=== PATIENT | male | born 2000 | race Caucasian/White ===

== ENCOUNTER → 2023-10-27 11:10 | Outpatient (BNVA) | payer OTHER, SELFPAY | PROVIDERS: Visit Provider Physician Assistant | DX: S29.012A Strain of muscle and tendon of back wall of thorax, initial encounter (principal); S39.012A Strain of muscle, fascia and tendon of lower back, initial encounter; W17.89XA Other fall from one level to another, initial encounter | CPT/HCPCS: 99203 ==

== ENCOUNTER → 2023-11-03 09:21 | Outpatient (BNVA) | payer OTHER, SELFPAY | PROVIDERS: Visit Provider Physician Assistant | DX: M54.2 Cervicalgia (principal); S39.012A Strain of muscle, fascia and tendon of lower back, initial encounter; W17.89XA Other fall from one level to another, initial encounter | CPT/HCPCS: 99213 ==

== ENCOUNTER → 2023-11-17 08:59 | Outpatient (BNVA) | payer OTHER, SELFPAY | PROVIDERS: Visit Provider Physician Assistant | DX: M54.2 Cervicalgia (principal); S39.012D Strain of muscle, fascia and tendon of lower back, subsequent encounter; X58.XXXD Exposure to other specified factors, subsequent encounter | CPT/HCPCS: 99213 ==

== ENCOUNTER → 2023-12-01 08:58 | Outpatient (BNVA) | payer OTHER, SELFPAY | PROVIDERS: Visit Provider Physician Assistant | DX: M54.2 Cervicalgia (principal); S39.012D Strain of muscle, fascia and tendon of lower back, subsequent encounter; W17.89XD Other fall from one level to another, subsequent encounter | CPT/HCPCS: 99213 ==

== ENCOUNTER → 2023-12-15 09:25 | Outpatient (BNVA) | payer OTHER, SELFPAY | PROVIDERS: Visit Provider Physician Assistant | DX: M54.2 Cervicalgia (principal); S39.012D Strain of muscle, fascia and tendon of lower back, subsequent encounter; W17.89XD Other fall from one level to another, subsequent encounter | CPT/HCPCS: 99213 ==

== ENCOUNTER → 2024-01-05 09:30 | Outpatient (BNVA) | payer OTHER, SELFPAY | PROVIDERS: Visit Provider Physician Assistant Medical | DX: S16.1XXD Strain of muscle, fascia and tendon at neck level, subsequent encounter (principal); S39.012D Strain of muscle, fascia and tendon of lower back, subsequent encounter; W17.89XD Other fall from one level to another, subsequent encounter | CPT/HCPCS: 99213 ==

== ENCOUNTER → 2024-01-26 09:29 | Outpatient (BNVA) | payer OTHER, SELFPAY | PROVIDERS: Visit Provider Physician Assistant | DX: S16.1XXD Strain of muscle, fascia and tendon at neck level, subsequent encounter (principal); S39.012D Strain of muscle, fascia and tendon of lower back, subsequent encounter; W17.89XD Other fall from one level to another, subsequent encounter | CPT/HCPCS: 99214 ==

== ENCOUNTER → 2024-02-16 09:54 | Outpatient (BNVA) | payer OTHER, SELFPAY | PROVIDERS: Visit Provider Physician Assistant | DX: S16.1XXD Strain of muscle, fascia and tendon at neck level, subsequent encounter (principal); S39.012D Strain of muscle, fascia and tendon of lower back, subsequent encounter; W17.89XD Other fall from one level to another, subsequent encounter | CPT/HCPCS: 99213 ==

== ENCOUNTER 2024-02-25 08:45 | Outpatient (AMB) | payer OTHER, SELFPAY ==
--- NOTE | 2024-02-25 08:47 | A.OFFVIS_ITS ---
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 This is Workers Comp case #[id number] managed by the [facility] Worker?s Compensation Department. Patient was referred to us by [facility]. He reports falling through barn floor into at least 6 feet down cellar on a [employer] cat into concrete floor. He states the back of machine went down and he fell on his back while in it and had Whiplash injury with increased pain in his neck and shoulders. Reports significant and persistent low back pain and between shoulder blades. He reports low back pain with intermittent radiation into his left buttock and into left leg posteriorly with numbness, tingling and occasional weakness and heaviness which he reports causes limping. Patient reports 2 weeks ago he had difficulty lifting his left leg due to weakness. He completed chiropractic, physical therapy at [facility] and home exercises with partial relief. Patient also tried dry needling and cupping with mixed results. Reports PT easily exacerbates his pain. Bending, twisting, prolonged sitting or standing, supine position reproduces his pérez Lumbar spine MRI on 01/14/24 showed disc bulge with small left paracentral protrusion at L5-S1 level with no definite nerve root impingement. He is currently out of work since work injury. Pain affects his daily activities and functioning, work, sleep and social interactions. Pain is worse at the evening and nighttime which he rates at 6- 7/10. Denies any abdominal or groin pain, bladder or bowel dysfunction or saddle anesthesia. Location: Mid back radiates to lower back with radiation into LLE posteriorly Duration: 4 months, work-related injury Characteristics of symptom or complaint: Stabbing, shooting, spasming, stabbing, aching, numbness , tight, tiring Aggravating or associated factors: Movement, laying flat, twisting, bending Relieving factors: Ibuprofen, cyclobenzaprine, Tylenol, Biofreeze, tiger balm Treatment: PT, chiropractic therapy, dry needling, cupping [facility] Social History (Updated 02/25/24 @ 08:59 by Cindy Stoner) Alcohol intake: current Alcohol intake frequency: holidays/special occasions only Patient Tobacco Use Status: Never used Tobacco Review of Systems Const All systems reviewed & are unremarkable except as noted in HPI and below Physical Exam Vital Signs: Last Vital Signs Pulse 93 02/25/24 08:58 BP 150/95 H 02/25/24 08:58 Pulse Ox 100 02/25/24 08:58 Oxygen Delivery Method Room Air 02/25/24 08:58 BMI result Body Mass Index 32.6 General: Appears afebrile. No acute distress. Alert and oriented. Mood and affect appropriate. Follows and participates in conversation appropriately. Respiratory effort is unlabored. No cough. Able to transition from sit to stand unassisted. Ambulates with bilaterally normal heel strike and toe off. General: Yes no CVA tenderness Back/Spine/Pelvis Other: Patient is able to walk and stand on heels and tip toes with mild difficulty on the left due to pain demonstrating good motor tone. Non-antalgic gait, no limping. Can flex forward to 65-70 degrees and extend to 5-10 degrees before experiencing lumbar pain. Demonstrates 5/5 strength of quadriceps bilaterally as well as flexion/dorsiflexion of bilateral feet against resistance. 2+ pedal pulses bilaterally. Straight leg rise with dorsiflexion negative bilaterally. +2 patellar and achilles reflexes bilaterally. Facet loading test positive bilaterally. Shanita sign positive on the left, Leif?s and Stinchfield tests are negative bilaterally. No groin pain with I/E hip rotations. Valsalva maneuver negative. Back: no CVA tenderness Cervical Spine: normal cervical lordosis, cervical ROM normal, cervical muscular tenderness, pain with cervical ROM and No Cervical spine tenderness Thoracic/Lumbar Spine: thoracic and lumbar spine normal to inspection, No Thoracic/lumbar spine scar(s), Lasegue's sign negative, straight leg raise negative bilaterally, pain with thoraco-lumbar ROM, paraspinal muscle tenderness, No thoracic spinal tenderness and lumbar spinal tenderness (L4-S1) Pelvis: buttock tenderness on the left Sacroiliac joints: on the right nontender and on the left tender to palpation Results Reviewed Results Reviewed: Assessment & Plan Assessment & Plan (1) Cervicalgia: Code(s): M54.2 - Cervicalgia Category: Medical (2) Low back pain: Code(s): M54.50 - Low back pain, unspecified Category: Medical (3) Periscapular pain: Code(s): M89.8X1 - Other specified disorders of bone, shoulder Category: Medical (4) Lumbar disc herniation with radiculopathy: Code(s): M51.16 - Intervertebral disc disorders with radiculopathy, lumbar region Category: Medical Plan Discussed interventional treatments for periscapular and cervicalgia as well as left sided lumbar radicular. Patient is hesitant towards injections at this time and would like to continue conservative treatments, including physical and chiropractic therapy, NSAIDs, heat therapy, muscle relaxant. Scripts provided for gabapentin and lidocaine 5% for low back pain. Side effects and precautions were discussed with patient. All questions and concerns have been answered and patient agreed with the plan. Follow up in 4 weeks for medication review and sooner as needed. Medications: New 2 gabapentin 300 mg (3 x 100 mg) PO BEDTIME 30 days 90 caps 0RF pain M51.16 - Intervertebral disc disorders with radiculopathy, lumbar region, M54.50 - Low back pain, unspecified lidocaine 5% 1 patch topical DAILY 30 days 30 ea 0RF pain M51.16 - Intervertebral disc disorders with radiculopathy, lumbar region, M54.50 - Low back pain, unspecified Coding Level of Care Code New Pt Level 4 (59522) Diagnoses Cervicalgia M54.2 Low back pain M54.50 Periscapular pain M89.8X1 Lumbar disc herniation with radiculopathy M51.16
[2024-02-25 08:58] VITALS: BP 150/95; PULSE 93; O2SAT 100; BMI 32.6
== END 2024-02-25 09:33 | disposition home or self-care (01) ==
PROVIDERS: Referring Provider Physician Assistant; Visit Provider Nurse Practitioner Family
DX: M54.2 Cervicalgia (principal); M54.50 Low back pain, unspecified; M89.8X1 Other specified disorders of bone, shoulder; M51.16 Intervertebral disc disorders with radiculopathy, lumbar region
CPT/HCPCS: 99204

== ENCOUNTER → 2024-02-25 08:45 | Outpatient (BNVA) | payer OTHER, SELFPAY | PROVIDERS: Referring Provider Physician Assistant; Visit Provider Nurse Practitioner Family | DX: M54.2 Cervicalgia (principal); M54.50 Low back pain, unspecified; M89.8X1 Other specified disorders of bone, shoulder; M51.16 Intervertebral disc disorders with radiculopathy, lumbar region | CPT/HCPCS: 99202 ==

== ENCOUNTER → 2024-03-08 08:48 | Outpatient (BNVA) | payer OTHER, SELFPAY | PROVIDERS: Visit Provider Physician Assistant | DX: S16.1XXD Strain of muscle, fascia and tendon at neck level, subsequent encounter (principal); S39.012D Strain of muscle, fascia and tendon of lower back, subsequent encounter; W17.89XD Other fall from one level to another, subsequent encounter | CPT/HCPCS: 99214 ==

== ENCOUNTER → 2024-03-20 13:20 | Outpatient (BNVA) | payer OTHER, SELFPAY | PROVIDERS: Visit Provider Physician Assistant Medical | DX: S39.012D Strain of muscle, fascia and tendon of lower back, subsequent encounter (principal); W17.89XD Other fall from one level to another, subsequent encounter; M51.17 Intervertebral disc disorders with radiculopathy, lumbosacral region | CPT/HCPCS: 99213 ==

== ENCOUNTER 2024-03-24 08:55 | Outpatient (AMB) | payer OTHER, SELFPAY ==
[2024-03-24 09:06] VITALS: BP 132/68; PULSE 68; O2SAT 98; BMI 33.4
--- NOTE | 2024-03-24 09:06 | A.OFFVIS_ITS ---
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 He reports recent follow up with [facility] and starting Medrol Jassi on 03/20/24 after he returned to work recently for 3 days and his back locked up and he could not move or walk. Patient reports Medrol Jassi is providing him about 50% pain relief and allows him to function better. Patient rates pain 5/10 today. He has been managing his symptoms by taking gabapentin 300 mg at bedtime which allows him to sleep. He took off 1 week off this week from work and has noticed some improvement in his symptoms with rest. Denies any recent cough, cold, infection, fever, weakness, bladder or bowel dysfunction, saddle anesthesia, any significant changes in his medical history, medications or recent hospitalizations. PRIOR: Patient is a 23 years old male presents today for initial evaluation of persistent periscapular and low back pain with left sided radicular pain secondary to heavy equipment work accident on 10/21/23. This is Workers Comp case #[id number] managed by the [facility] Worker?s Compensation Department. Patient was referred to us by [employer] [facility]. He reports falling through barn floor into at least 6 feet down cellar on a Nigel cat into concrete floor. He states the back of machine went down and he fell on his back while in it and had Whiplash injury with increased pain in his neck and shoulders. Reports significant and persistent low back pain and between shoulder blades. He reports low back pain with intermittent radiation into his left buttock and into left leg posteriorly with numbness, tingling and occasional weakness and heaviness which he reports causes limping. Patient reports 2 weeks ago he had difficulty lifting his left leg due to weakness. He completed chiropractic, physical therapy at [facility] and home exercises with partial relief. Patient also tried dry needling and cupping with mixed results. Reports PT easily exacerbates his pain. Bending, twisting, prolonged sitting or standing, supine position reproduces his pérez Lumbar spine MRI on 01/14/24 showed disc bulge with small left paracentral protrusion at L5-S1 level with no definite nerve root impingement. He is currently out of work since work injury. Pain affects his daily activities and functioning, work, sleep and social interactions. Pain is worse at the evening and nighttime which he rates at 6- 7/10. Denies any abdominal or groin pain, bladder or bowel dysfunction or saddle anesthesia. Location: Mid back radiates to lower back with radiation into LLE posteriorly Duration: 4 months, work-related injury Characteristics of symptom or complaint: Stabbing, shooting, spasming, stabbing, aching, numbness , tight, tiring Aggravating or associated factors: Movement, laying flat, twisting, bending Relieving factors: Ibuprofen, cyclobenzaprine, Tylenol, Biofreeze, tiger balm Treatment: PT, chiropractic therapy, dry needling, cupping [facility] Social History Alcohol intake: current Alcohol intake frequency: holidays/special occasions only Patient Tobacco Use Status: Never used Tobacco Review of Systems Const All systems reviewed & are unremarkable except as noted in HPI and below Physical Exam Vital Signs: Last Vital Signs Pulse 68 03/24/24 09:06 BP 132/68 03/24/24 09:06 Pulse Ox 98 03/24/24 09:06 Oxygen Delivery Method Room Air 03/24/24 09:06 BMI result Body Mass Index 33.4 General: Appears afebrile. No acute distress. Alert and oriented. Mood and affect appropriate. Follows and participates in conversation appropriately. Respiratory effort is unlabored. No cough. Able to transition from sit to stand unassisted. Ambulates with bilaterally normal heel strike and toe off. General: Yes no CVA tenderness Back/Spine/Pelvis Other: Limited lumbar ROM due to pain exacerbation with bending. Non-antalgic gait, no limping. Can flex forward to 65-70 degrees and extend to 5-10 degrees before experiencing lumbar pain. Demonstrates 5/5 strength of quadriceps bilaterally as well as flexion/dorsiflexion of bilateral feet against resistance. 2+ pedal pulses bilaterally. Straight leg rise with dorsiflexion negative bilaterally. +2 patellar and achilles reflexes bilaterally. Facet loading test positive bilaterally. Shanita sign positive on the left, Leif?s and Stinchfield tests are negative bilaterally. No groin pain with I/E hip rotations. Valsalva maneuver negative. Back: no CVA tenderness Cervical Spine: normal cervical lordosis, cervical ROM normal, cervical muscular tenderness, pain with cervical ROM and No Cervical spine tenderness Thoracic/Lumbar Spine: thoracic and lumbar spine normal to inspection, No Thoracic/lumbar spine scar(s), Lasegue's sign negative, straight leg raise negative bilaterally, pain with thoraco-lumbar ROM, paraspinal muscle tenderness, No thoracic spinal tenderness and lumbar spinal tenderness (L4-S1) Pelvis: buttock tenderness on the left Sacroiliac joints: on the right nontender and on the left tender to palpation Results Reviewed Results Reviewed: Assessment & Plan Assessment & Plan (1) Cervicalgia: Code(s): M54.2 - Cervicalgia Category: Medical (2) Low back pain: Code(s): M54.50 - Low back pain, unspecified Category: Medical (3) Lumbar disc herniation with radiculopathy: Code(s): M51.16 - Intervertebral disc disorders with radiculopathy, lumbar region Category: Medical Plan Continue gabapentin, lidocaine 5% and Flexeril for low back pain and left radicular symptoms. Continue to monitor for side effects. Tentatively schedule Left L5-S1 TFESI with sedation and fluoroscopy. Expectations, risks and benefits were reviewed. Patient is aware he will be contacted to schedule this procedure. All questions and concerns have been answered and patient agreed with the plan. Follow up as needed. Coding Level of Care Code Est Pt Level 4 (24642) Complex EM visit Add On G2211 Diagnoses Cervicalgia M54.2 Low back pain M54.50 Lumbar disc herniation with radiculopathy M51.16
== END 2024-03-24 09:26 | disposition home or self-care (01) ==
PROVIDERS: Visit Provider Nurse Practitioner Family
DX: M54.2 Cervicalgia (principal); M54.50 Low back pain, unspecified; M51.16 Intervertebral disc disorders with radiculopathy, lumbar region
CPT/HCPCS: 99214; G2211

== ENCOUNTER → 2024-03-24 08:55 | Outpatient (BNVA) | payer OTHER, SELFPAY | PROVIDERS: Visit Provider Nurse Practitioner Family | DX: M54.2 Cervicalgia (principal); M54.50 Low back pain, unspecified; M51.16 Intervertebral disc disorders with radiculopathy, lumbar region | CPT/HCPCS: 99212 ==

== ENCOUNTER → 2024-03-24 09:51 | Outpatient (BNVA) | payer OTHER, SELFPAY | PROVIDERS: Visit Provider Physician Assistant Medical | DX: S39.012D Strain of muscle, fascia and tendon of lower back, subsequent encounter (principal); W17.89XD Other fall from one level to another, subsequent encounter | CPT/HCPCS: 99213 ==

== ENCOUNTER → 2024-03-30 08:54 | Outpatient (BNVA) | payer OTHER, SELFPAY | PROVIDERS: Visit Provider Physician Assistant | DX: S39.012D Strain of muscle, fascia and tendon of lower back, subsequent encounter (principal); W17.89XD Other fall from one level to another, subsequent encounter | CPT/HCPCS: 99213 ==

== ENCOUNTER → 2024-04-12 08:55 | Outpatient (BNVA) | payer OTHER, SELFPAY | PROVIDERS: Visit Provider Physician Assistant | DX: S39.012D Strain of muscle, fascia and tendon of lower back, subsequent encounter (principal); W17.89XD Other fall from one level to another, subsequent encounter; M54.2 Cervicalgia | CPT/HCPCS: 99213 ==

== ENCOUNTER → 2024-04-21 09:03 | Outpatient (BNVA) | payer OTHER, SELFPAY | PROVIDERS: Visit Provider Physician Assistant | DX: S39.012D Strain of muscle, fascia and tendon of lower back, subsequent encounter (principal); W17.89XD Other fall from one level to another, subsequent encounter; M25.511 Pain in right shoulder | CPT/HCPCS: 99213 ==

== ENCOUNTER → 2024-05-03 09:57 | Outpatient (BNVA) | payer OTHER, SELFPAY | PROVIDERS: Visit Provider Physician Assistant | DX: S39.012D Strain of muscle, fascia and tendon of lower back, subsequent encounter (principal); S29.012D Strain of muscle and tendon of back wall of thorax, subsequent encounter; W17.89XD Other fall from one level to another, subsequent encounter | CPT/HCPCS: 99213 ==

== ENCOUNTER → 2024-05-17 09:15 | Outpatient (BNVA) | payer OTHER, SELFPAY | PROVIDERS: Visit Provider Physician Assistant | DX: S39.012D Strain of muscle, fascia and tendon of lower back, subsequent encounter (principal); S29.012D Strain of muscle and tendon of back wall of thorax, subsequent encounter; W17.89XD Other fall from one level to another, subsequent encounter | CPT/HCPCS: 99214 ==

== ENCOUNTER → 2024-05-31 09:21 | Outpatient (BNVA) | payer OTHER, SELFPAY | PROVIDERS: Visit Provider Physician Assistant Medical | DX: S39.012D Strain of muscle, fascia and tendon of lower back, subsequent encounter (principal); W17.89XD Other fall from one level to another, subsequent encounter; M54.2 Cervicalgia; M54.14 Radiculopathy, thoracic region | CPT/HCPCS: 99213 ==

== ENCOUNTER → 2024-06-21 09:54 | Outpatient (BNVA) | payer OTHER, SELFPAY | PROVIDERS: Visit Provider Physician Assistant | DX: S39.012D Strain of muscle, fascia and tendon of lower back, subsequent encounter (principal); W17.89XD Other fall from one level to another, subsequent encounter; M54.9 Dorsalgia, unspecified; F41.9 Anxiety disorder, unspecified | CPT/HCPCS: 99214 ==

== ENCOUNTER → 2024-07-14 08:54 | Outpatient (BNVA) | payer OTHER, SELFPAY | PROVIDERS: Visit Provider Physician Assistant | DX: M54.50 Low back pain, unspecified (principal); R20.2 Paresthesia of skin; F41.9 Anxiety disorder, unspecified | CPT/HCPCS: 99214 ==

== ENCOUNTER → 2024-09-15 09:00 | Outpatient (BNVA) | payer OTHER, SELFPAY | PROVIDERS: Visit Provider Physician Assistant | DX: M54.50 Low back pain, unspecified (principal); R20.2 Paresthesia of skin | CPT/HCPCS: 99214 ==